=== PATIENT | male | born 1990 | race Caucasian/White ===

== ENCOUNTER 2019-11-14 10:19 | Emergency (ER) | payer SELFPAY ==
[~2019-11-14] VITALS: Ht 193 cm; Wt 86.3 kg
[2019-11-14] MEDS ORDERED: NS IV 1000 ML 1,000 ML ONE (10:25)
[2019-11-14] MEDS ORDERED: LACTATED RINGERS 1,000 ML IV ONE (10:29)
[2019-11-14] MEDS ORDERED: ASPIRIN 81 MG CHEW (CHILDREN'S ASA) PO ONE (10:30)
[2019-11-14] MEDS ORDERED: LORazepam INJ 2 MG/ML (ATIVAN) VIAL IVP ONE (10:30)
[2019-11-14 10:37] LABS: BASOPHILS # (AUTO) 0.1 10^3/uL (0.0-0.1); BASOPHILS % (AUTO) 1 % (0-10); EOSINOPHILS # (AUTO) 0.1 10^3/uL (0.0-0.3); EOSINOPHILS % (AUTO) 1 % (0-10); HEMATOCRIT 48 % (40-54); LYMPHOCYTES # (AUTO) 2.1 X 10^3 (1.0-4.0); LYMPHOCYTES % (AUTO) 21 % (12-44); MEAN CORPUSCULAR HEMOGLOBIN 31 PG (25-34); MEAN CORPUSCULAR HGB CONC 36 G/DL (32-36); MEAN CORPUSCULAR VOLUME 88 FL (80-99); MEAN PLATELET VOLUME 10.7 FL (7.4-10.4); MONOCYTES # (AUTO) 0.9 X 10^3 (0.0-1.0); MONOCYTES % (AUTO) 9 % (0-12); NEUTROPHILS # (AUTO) 6.8 X 10^3 (1.8-7.8); NEUTROPHILS % (AUTO) 69 % (42-75); PLATELET COUNT 213 10^3/uL (130-400); RED CELL DISTRIBUTION WIDTH 12.8 % (10.0-14.5); WHITE BLOOD COUNT 9.9 10^3/uL (4.3-11.0)
--- NOTE | 2019-11-14 10:37 | ED Respiratory ---
General Stated Complaint: CHEST TIGHTNESS/SOB Source: patient Exam Limitations: no limitations History of Present Illness Date Seen by Provider: Nov 14, 2019 Time Seen by Provider: 10:20 Initial Comments Patient arrives the ER by private conveyance with his significant other and chief complaint that yesterday while doing some carmen started having some ch est pain and pressure in the center of his chest nonradiating. As he was walking through [employer] he said the pain suddenly got worse and feels like a 8 out of 10, someone sitting on his chest and hurts take deep breaths or direct palpation over his chest. No rash fevers chills cough. He is having shortness of breath and has no history of asthma or COPD. He smokes about a pack per day as well as occasional marijuana. He rarely drinks alcohol. He does not follow with a doctor and has no known significant medical history nor does he take any medicines. He has no familial medical history there is aware of either. He has not taken any thing for the pain yet. He says he started to get some tingling in his right arm feels like his right ring finger is becoming tingling and curling up. Allergies and Home Medications Allergies Coded Allergies: No Known Drug Allergies (Unverified , 11/14/19) Home Medications Hydroxyzine Pamoate 25 Mg Capsule, 25 MG PO Q6H PRN for ANXIETY Prescribed by: GEOVANNY THOMASON on 11/14/19 1251 Naproxen 500 Mg Tablet, 500 MG PO BID Prescribed by: GEOVANNY THOMASON on 11/14/19 1251 Patient Home Medication List Home Medication List Reviewed: Yes Review of Systems Review of Systems Constitutional: No chills, No diaphoresis EENTM: No ear discharge, No ear pain Respiratory: No cough, No phlegm; short of breath; No wheezing Cardiovascular: see HPI, chest pain; No edema, No Hx of Intervention, No palpitations Gastrointestinal: No abdominal pain, No nausea, No vomiting Genitourinary: No discharge, No dysuria Musculoskeletal: No back pain, No joint pain All Other Systems Reviewed Negative Unless Noted: Yes Past Zlpuyrv-Nnfnsj-Jvpdoc Hx Patient Social History Alcohol Use: Denies Use Recreational Drug Use: Yes Drug of Choice: cannabis Smoking Status: Current Everyday Smoker Type Used: Cigarettes Recent Foreign Travel: No Contact w/Someone Who Travel: No Physical Exam Vital Signs - First Documented Capillary Refill : Height: '" Weight: lbs. oz. kg; BMI Method: General Appearance: WD/WN, mild distress Eyes: Bilateral Eye Normal Inspection, Bilateral Eye PERRL, Bilateral Eye EOMI HEENT: PERRL/EOMI, normal ENT inspection, TMs normal, pharynx normal Neck: non-tender, full range of motion, supple, normal inspection Respiratory: No chest non-tender (tender to palpation over right upper chest and mediastinum); lungs clear, normal breath sounds, respiratory distress, accessory muscle use, other (rapid deep breathing, 30-35 breaths per minute) Cardiovascular: normal peripheral pulses, regular rate, rhythm, no edema Gastrointestinal: normal bowel sounds, non tender, soft Extremities: non-tender, normal inspection, normal capillary refill Neurologic/Psychiatric: alert, oriented x 3, other (anxious) Skin: normal color, warm/dry Progress/Results/Core Measures Suspected Sepsis SIRS Temperature: Pulse: Respiratory Rate: Laboratory Tests 11/14/19 10:25: White Blood Count 9.9 Blood Pressure / Mean: Laboratory Tests 11/14/19 10:25: Creatinine 1.18, Platelet Count 213, Total Bilirubin 0.9 11/14/19 11:44: INR Comment 1.1 Results/Orders Lab Results Laboratory Tests Test 11/14/19 10:25 11/14/19 10:44 11/14/19 11:44 Range/Units White Blood Count 9.9 4.3-11.0 10^3/uL Red Blood Count 5.43 4.35-5.85 10^6/uL Hemoglobin 17.0 13.3-17.7 G/DL Hematocrit 48 40-54 % Mean Corpuscular Volume 88 80-99 FL Mean Corpuscular Hemoglobin 31 25-34 PG Mean Corpuscular Hemoglobin Concent 36 32-36 G/DL Red Cell Distribution Width 12.8 10.0-14.5 % Platelet Count 213 130-400 10^3/uL Mean Platelet Volume 10.7 H 7.4-10.4 FL Neutrophils (%) (Auto) 69 42-75 % Lymphocytes (%) (Auto) 21 12-44 % Monocytes (%) (Auto) 9 0-12 % Eosinophils (%) (Auto) 1 0-10 % Basophils (%) (Auto) 1 0-10 % Neutrophils # (Auto) 6.8 1.8-7.8 X 10^3 Lymphocytes # (Auto) 2.1 1.0-4.0 X 10^3 Monocytes # (Auto) 0.9 0.0-1.0 X 10^3 Eosinophils # (Auto) 0.1 0.0-0.3 10^3/uL Basophils # (Auto) 0.1 0.0-0.1 10^3/uL Sodium Level 140 135-145 MMOL/L Potassium Level 4.2 3.6-5.0 MMOL/L Chloride Level 107 98-107 MMOL/L Carbon Dioxide Level 16 L 21-32 MMOL/L Anion Gap 17 H 5-14 MMOL/L Blood Urea Nitrogen 11 7-18 MG/DL Creatinine 1.18 0.60-1.30 MG/DL Estimat Glomerular Filtration Rate > 60 BUN/Creatinine Ratio 9 Glucose Level 106 H 70-105 MG/DL Calcium Level 10.1 8.5-10.1 MG/DL Corrected Calcium 8.5-10.1 MG/DL Magnesium Level 1.8 1.6-2.4 MG/DL Total Bilirubin 0.9 0.1-1.0 MG/DL Aspartate Amino Transf (AST/SGOT) 23 5-34 U/L Alanine Aminotransferase (ALT/SGPT) 29 0-55 U/L Alkaline Phosphatase 76 40-136 U/L Myoglobin 71.9 10.0-92.0 NG/ML Troponin I < 0.028 <0.028 NG/ML B-Type Natriuretic Peptide 47.3 <100.0 PG/ML Total Protein 7.9 6.4-8.2 GM/DL Albumin 4.9 H 3.2-4.5 GM/DL Blood Gas Puncture Site LT RAD Blood Gas Patient Temperature 36.6 Arterial Blood pH 7.61 *H 7.37-7.43 Arterial Blood Partial Pressure CO2 20 L 35-45 MMHG Arterial Blood Partial Pressure O2 30 *L 79-93 MMHG Arterial Blood HCO3 21 L 23-27 MMOL/L Arterial Blood Total CO2 21.1 21.0-31.0 MMOL/L Arterial Blood Oxygen Saturation 61 L 94-100 % Arterial Blood Base Excess -1.1 -2.5-2.5 MMOL/L Sam Test YES-POS Blood Gas Ventilator Setting NO Blood Gas Inspired Oxygen ROOM AIR Prothrombin Time 14.2 12.2-14.7 SEC INR Comment 1.1 0.8-1.4 Activated Partial Thromboplast Time 32 24-35 SEC D-Dimer < 0.27 0.00-0.49 UG/ML My Orders Orders - GEOVANNY THOMASON Ekg Tracing (11/14/19 10:22) Continuous Ekg Monitoring (11/14/19 10:22) Ns Iv 1000 Ml (Sodium Chloride 0.9%) (11/14/19 10:25) Ed Iv/Invasive Line Start (11/14/19 10:29) Lactated Ringers (Lr 1000 Ml Iv Solution (11/14/19 10:29) Cbc With Automated Diff (11/14/19 10:29) Magnesium (11/14/19 10:29) Chest 1 View, Ap/Pa Only (11/14/19 10:29) Comprehensive Metabolic Panel (11/14/19 10:29) Myoglobin Serum (11/14/19 10:29) Protime With Inr (11/14/19 10:29) Partial Thromboplastin Time (11/14/19 10:29) O2 (11/14/19 10:29) Lipid Panel (11/15/19 06:00) Ed Iv/Invasive Line Start (11/14/19 10:29) BNP (11/14/19 10:29) Fibrin Degradation Products (11/14/19 10:29) Troponin I (11/14/19 10:29) Aspirin Chewable Tablet (Baby Aspirin Ch (11/14/19 10:30) Lorazepam Injection (Ativan Injection) (11/14/19 10:30) Ekg Tracing (11/14/19 10:38) Ed Iv/Invasive Line Start (11/14/19 10:45) Ns Iv 1000 Ml (Sodium Chloride 0.9%) (11/14/19 10:45) Arterial Blood Gas (11/14/19 10:45) Medications Given in ED Current Medications Medications Dose Ordered Sig/Evelin Route Start Time Stop Time Status Last Admin Dose Admin Aspirin 324 mg ONCE ONCE PO 11/14/19 10:30 11/14/19 10:32 DC 11/14/19 10:41 324 MG Lorazepam 0.5 mg ONCE ONCE IVP 11/14/19 10:30 11/14/19 10:32 DC 11/14/19 10:41 0.5 MG Sodium Chloride 1,000 ml @ ud STK-MED ONCE .ROUTE 11/14/19 10:25 11/14/19 10:30 DC 11/14/19 10:31 1,000 MLS/HR Vital Signs/I&O 11/14/19 11/14/19 10:19 10:19 Temp 36.6 Pulse 110 Resp 30 B/P (MAP) 144/87 (106) Pulse Ox 98 O2 Delivery Room Air Room Air Capillary Refill : Progress Note #1: Time: 10:35 Progress Note Costochondritis, anxiety attack versus less likely pneumothorax or pulmonary embolism. He has good breath sounds auscultated. We'll get a chest x-ray some labs to rule out pneumonia or bronchitis. Given some aspirin for his discomfort in his chest as well as prophylaxis. He denies any other recreational drug use such as cocaine or methamphetamines. Half milligram Ativan IV. ABG. We'll put a nonrebreather on it 3-4 L/m to help with CO2 retention. Progress Note #2: Time: 12:47 Progress Note The patient feels much better. He is tired. We will give him some Vistaril to try as well as refer him to primary care. We'll also give him some naproxen for his costochondritis. ECG Initial ECG Impression Date: Nov 14, 2019 Initial ECG Impression Time: 10:19 Initial ECG Rate: 99 Initial ECG Rhythm: S.Tach Initial ECG Intervals: Normal Initial ECG Impression: Normal Initial ECG Comparisson: No Previous ECG Available Comment Sinus tachycardia without ST elevation or depression. Lots of respiratory motion artifact. EKG : EKG Time: 10:53 Rate: 69 Rhythm: Normal Sinus Intervals: Normal ECG Comparisson: Changed ECG Impression: Normal Comment Normal sinus rhythm without ST depression. Diagnostic Imaging Diagonstic Imaging: Xray Plain Films/CT/US/NM/MRI: chest (1v) Comments NAME: ELIZABETH HARDING MED REC#: [id number] PT STATUS: REG ER : 1990 PHYSICIAN: GEOVANNY THOMASON MD ADMIT DATE: 11/14/19/ER Draft Date of Exam:11/14/19 CHEST 1 VIEW, AP/PA ONLY CLINICAL INDICATION: Patient with chest pain, shortness of air, and chills since last night. EXAM: Portable chest x-ray, upright view. COMPARISONS: None. FINDINGS: Lungs/pleura: Lungs are clear. There is no pneumothorax. There is no pleural effusion. Mediastinum: Unremarkable. Pulmonary vasculature: Unremarkable. Heart: Unremarkable. Bones/extrathoracic soft tissue: Unremarkable. IMPRESSION: There is no radiographic evidence of acute cardiopulmonary process. Dictated on workstation # [id number] Dict: 11/14/19 1100 Trans: 11/14/19 1102 [id number] Interpreted by: SILVINO TROTTER MD Electronically signed by: Reviewed: Reviewed by Me Departure Impression Primary Impression: Panic attack Additional Impression: Costochondritis, acute Disposition: HOME, SELF-CARE Condition: Stable Departure-Patient Inst. Decision time for Depature: 12:47 Referrals: NO,LOCAL PHYSICIAN (PCP/Family) Primary Care Physician Patient Instructions: Costochondritis, LOCAL PHYSICIAN LIST, Panic Disorder (DC) Add. Discharge Instructions: If you feel the symptoms of a panic attack such as rapid breathing, narrowed vision, undue anxiety, tingling in the lips, tongue or fingertips then you may take 25 mg of Vistaril once every 6 hours as well as start working on the cognitive behavioral therapy techniques we discussed such as controlled breathing. If you have other worrisome symptoms may return to the ER. Tylenol 1000 mg every 8 hours as necessary for pain. Take the naproxen 500 mg tablet twice a day on a scheduled basis for one to 2 weeks to help relieve the pain and inflammation in your chest wall. If you begin to have acid reflux/indigestion then stop taking the naproxen and follow-up with primary care doctor. Scripts Hydroxyzine Pamoate (Vistaril) 25 Mg Capsule 25 MG PO Q6H PRN for ANXIETY, #20 CAP 0 Refills Prov: GEOVANNY THOMASON 11/14/19 Naproxen (Naprosyn) 500 Mg Tablet 500 MG PO BID for 14 Days, #28 TAB 0 Refills Prov: GEOVANNY THOMASON 11/14/19 Work/School Note: Work Release Form Date Seen in the Emergency Department: Nov 14, 2019 Return to Work: Nov 15, 2019 Restrictions: No Restrictions GEOVANNY THOMASON Nov 14, 2019 10:37
[2019-11-14] MEDS ORDERED: NS IV 1000 ML 1,000 ML IV SCH (10:45)
[2019-11-14 10:56] LABS: ABG BASE EXCESS -1.1 MMOL/L (-2.5-2.5); ABG OXYGEN SATURATION 61 % (94-100); ABG PCO2 20 MMHG (35-45); ABG TCO2 21.1 MMOL/L (21.0-31.0)
[2019-11-14 10:57] LABS: ABG PH 7.61 (7.37-7.43); ABG PO2 30 MMHG (79-93); ALLENS TEST YES-POS; INSPIRED O2 ROOM AIR; PATIENT TEMP 36.6; VENTILATOR NO
[2019-11-14 11:02] LABS: ALANINE AMINOTRANSFERASE 29 U/L (0-55); ALBUMIN 4.9 GM/DL (3.2-4.5); ALKALINE PHOSPHATASE 76 U/L (40-136); BILIRUBIN,TOTAL 0.9 MG/DL (0.1-1.0); BUN/CREATININE RATIO 9; CALCIUM 10.1 MG/DL (8.5-10.1); CARBON DIOXIDE 16 MMOL/L (21-32); CHLORIDE 107 MMOL/L (98-107); CREATININE SERUM 1.18 MG/DL (0.60-1.30); GFR ESTIMATED > 60; GLUCOSE 106 MG/DL (70-105); MAGNESIUM 1.8 MG/DL (1.6-2.4); POTASSIUM 4.2 MMOL/L (3.6-5.0); SODIUM 140 MMOL/L (135-145); TOTAL PROTEIN 7.9 GM/DL (6.4-8.2)
--- NOTE | 2019-11-14 11:03 | Diagnostic Imaging Report ---
CLINICAL INDICATION: Patient with chest pain, shortness of air, and chills since last night. EXAM: Portable chest x-ray, upright view. COMPARISONS: None. FINDINGS: Lungs/pleura: Lungs are clear. There is no pneumothorax. There is no pleural effusion. Mediastinum: Unremarkable. Pulmonary vasculature: Unremarkable. Heart: Unremarkable. Bones/extrathoracic soft tissue: Unremarkable. IMPRESSION: There is no radiographic evidence of acute cardiopulmonary process. Dictated by: Dictated on workstation # [id number]
[2019-11-14 12:02] LABS: INR 1.1 (0.8-1.4); PROTHROMBIN TIME PATIENT 14.2 SEC (12.2-14.7)
--- NOTE | 2019-11-14 12:30 | NUR ---
Pt denies needs at this time. Pt reports just feeling tired. Lights dimmed so pt could rest at this time.
[2019-11-14] MEDS ORDERED: HYDR25CA PO (12:51)
[2019-11-14] MEDS ORDERED: NAPR-1071 PO (12:51)
[2019-11-14] MEDS ORDERED: KETOROLAC 30 MG/ML VIAL IVP ONE (13:00)
[2019-11-14 13:09] VITALS: BP 142/86
== END 2019-11-14 13:09 | disposition home or self-care (01) ==
LOC: ER 10:21
DX: F41.0 Panic disorder [episodic paroxysmal anxiety] (principal); M94.0 Chondrocostal junction syndrome [Tietze]; F17.210 Nicotine dependence, cigarettes, uncomplicated
CPT/HCPCS: 36415; 71045; 80053; 82805; 83735; 83874; 83880; 84484; 85025; 85379; 85610; 85730; 93005; 96361; 96374; 96375